=== PATIENT | female | born 1995 | race Native Hawaiian/Other Pacific Islander ===

== ENCOUNTER 2022-04-29 10:33 | Outpatient (CLI) | payer OTHER | END 2022-04-29 19:22 | disposition home or self-care (01) | LOC: LABW 10:33 | PROVIDERS: ATTEND Nurse Practitioner Family | DX: R00.2 Palpitations (principal) | CPT/HCPCS: 93005; 93225 ==

== ENCOUNTER 2022-04-29 10:58 | Emergency (ER) | payer OTHER ==
[~2022-04-29] VITALS: Ht 149.9 cm; Wt 126.1 kg
[2022-04-29 11:00] VITALS: TEMP 98.4
[2022-04-29 11:54] LABS: PLATELET COUNT 369 K/uL (152-353)
[2022-04-29 12:03] LABS: POTASSIUM 3.7 mmol/L (3.6-5.2)
[2022-04-29 12:30] VITALS: BP 126/74
== END 2022-04-29 12:50 | disposition home or self-care (01) ==
LOC: ED 10:58
PROVIDERS: Emergency Medicine
DX: R00.2 Palpitations (principal)
CPT/HCPCS: 36415; 80053; 84443; 84484; 85027; 93005; 99284